=== PATIENT | female | born 1980 | race Caucasian/White ===

== ENCOUNTER 2017-10-03 17:08 | Emergency (ER) | payer MEDICAID, OTHER ==
[2017-10-03] MEDS ORDERED: Ketorolac 60 MG/2 ML SDV IM ONE (17:50)
--- NOTE | 2017-10-03 17:51 | EDM.PDOC ---
ED HPI GENERAL MEDICAL PROBLEM - General Chief Complaint: Headache Stated Complaint: HIGH BP, MIGRAINE Time Seen by Provider: 10/03/17 17:15 Source of Information: Reports: Patient, Family History Limitations: Reports: No Limitations - History of Present Illness INITIAL COMMENTS - FREE TEXT/NARRATIVE: 37 y.o.w.f with a H/O migraine H/A came to the ed with her SO due to neck pain radiating to her posterior sharee to her temp area, bilat after she was carrying furnitures on her back the day prior for moving purposes. No N/V/D, no photophobia or any other acute medical issues. No direct trauma. 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 Posterior head & neck Pain Score (Numeric/FACES): 4 - Related Data Allergies Allergy/AdvReac Type Severity Reaction Status Date / Time No Known Allergies Allergy Verified 10/03/17 17:17 Home Meds: Home Meds buPROPion [buPROPion XL] 300 mg PO DAILY 10/03/17 [History] Past Medical History Gastrointestinal History: Reports: None Genitourinary History: Reports: UTI, Recurrent 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 History: Neurological History: Reports: Migraines Psychiatric History: Reports: Anxiety, Depression Endocrine/Metabolic History: Reports: Diabetes, Gestational - Infectious Disease History Infectious Disease History: Reports: Chicken Pox - Past Surgical History Head Surgeries/Procedures: Reports: None HEENT Surgical History: Reports: Oral Surgery GI Surgical History: Reports: None Female Surgical History: Reports: Section Other Female Surgeries/Procedures: CS x 2 Neurological Surgical History: Reports: None Social & Family History - Family History Family Medical History: Noncontributory - Tobacco Use Smoking Status *Q: Current Some Day Smoker Years of Tobacco use: 19 Packs/Tins Daily: 0.5 - Caffeine Use Caffeine Use: Reports: Coffee - Alcohol Use Days Per Week of Alcohol Use: 1 Number of Drinks Per Day: 1 Total Drinks Per Week: 1 - Recreational Drug Use Recreational Drug Use: No ED ROS GENERAL - Review of Systems Review Of Systems: See Below Constitutional: Reports: No Symptoms HEENT: Reports: No Symptoms Respiratory: Reports: No Symptoms Cardiovascular: Reports: No Symptoms Endocrine: Reports: No Symptoms GI/Abdominal: Reports: No Symptoms : Reports: No Symptoms Musculoskeletal: Reports: No Symptoms Skin: Reports: No Symptoms Neurological: Reports: No Symptoms Psychiatric: Reports: No Symptoms Hematologic/Lymphatic: Reports: No Symptoms Immunologic: Reports: No Symptoms - Physical Exam Exam: See Below Exam Limited By: No Limitations General Appearance: Alert, WD/WN, Mild Distress, Thin Eye Exam: Bilateral Eye: Normal Inspection Ears: Normal External Exam Nose: Normal Inspection, Normal Mucosa, No Blood Throat/Mouth: Normal Inspection, Normal Lips Head Exam: Atraumatic, Normocephalic Neck: Normal Inspection, Supple, Non-Tender Respiratory/Chest: No Respiratory Distress Cardiovascular: Normal Peripheral Pulses GI/Abdominal: Normal Bowel Sounds, Soft, Non-Tender, No Organomegaly, No Abnormal Bruit, No Mass (Female) Exam: Deferred Rectal (Female) Exam: Deferred Neuro Exam (Abbreviated): Alert, Oriented, CN II-XII Intact, Normal Cognition, Normal Gait, No Motor/Sensory Deficits Back Exam: Normal Inspection Extremities: Normal Inspection, Normal Range of Motion, Non-Tender, No Pedal Edema, Normal Capillary Refill Psychiatric: Normal Affect, Normal Mood Skin Exam: Warm, Dry, Intact, Normal Color, No Rash Course - Vital Signs Text/Narrative:: 37 y.o.w.f with a H/O migraine H/A came to the ed with her SO due to neck pain radiating to her posterior sharee to her temp area, bilat after she was carrying furnitures on her back the day prior for moving purposes. No N/V/D, no photophobia or any other acute medical issues. No direct trauma. BP 125/112 Pulse 119 Temp 37.1 RR 18 Pulse ox 99% on RA PE: Bilat post neck discomfort Impression: Tension H/A Tx: Toradol, ICE to post neck Reexam: Improved Plan: D/C with instructions Last Recorded V/S: Last Vital Signs Temp 36.7 C 10/03/17 17:15 Pulse 119 H 10/03/17 17:15 Resp 18 10/03/17 18:25 BP 128/92 H 10/03/17 18:25 Pulse Ox 100 10/03/17 18:25 - Orders/Labs/Meds Meds: Medications Discontinued Medications Generic Name Dose Route Start Last Admin Trade Name Trina PRN Reason Stop Dose Admin Ketorolac Tromethamine 60 mg 10/03/17 17:50 10/03/17 17:55 Toradol IM 10/03/17 17:51 60 mg ONETIME ONE Administration Departure - Departure Time of Disposition: 18:30 Disposition: Home, Self-Care 01 Condition: Good Clinical Impression: Tension-type headache - Discharge Information Instructions: Tension Headache, [id number] Referrals: Felix Barillas MD [Primary Care Provider] - Forms: ED Department Discharge Additional Instructions: Please take motrin 600 mg with food 3 times a day, as needed, please follow up with your regular MD at clinic, come back if your symptoms get worse acutely
== END 2017-10-03 18:37 | disposition home or self-care (01) ==
LOC: FB.ED 17:08
DX: G44.209 Tension-type headache, unspecified, not intractable (principal); F17.210 Nicotine dependence, cigarettes, uncomplicated; Z79.899 Other long term (current) drug therapy
CPT/HCPCS: 96372; 99284; J1885

== ENCOUNTER 2017-11-07 09:44 | Emergency (ER) | payer BC, OTHER ==
[2017-11-07] MEDS ORDERED: diphenhydrAMINE 50 MG/ML SDV IV ONE (10:21)
--- NOTE | 2017-11-07 11:50 | EDM.PDOCBH ---
ED HPI GENERAL MEDICAL PROBLEM - General Chief Complaint: Behavioral/Psych Stated Complaint: SOB Time Seen by Provider: 11/07/17 09:55 Source of Information: Reports: Patient, Family History Limitations: Reports: Other (anxious) - History of Present Illness INITIAL COMMENTS - FREE TEXT/NARRATIVE: 37 y.o.w.f came to the ed by PC due to SOB with face and fingers tingling. Pt had similar symptoms in the past. Pt is anxious and is hyperventilating. She denies being under stress, denies taking drugs, does not smoke, no ETOH. No N/V/ D or any other acute medical issues. She has an appointment with Dr. Barillas tomorrow for anxiety. BP 142/110 RR 24 Pulse ox 100% on RA Pulse 120 Temp 36.8 Onset: Today Onset Date: 11/07/17 Onset Time: 06:00 Duration: Hour(s):, Intermittent Location: Reports: Generalized Severity: Mild Improves with: Reports: Rest Worsens with: Reports: Other (stress) Context: Reports: Other (anxiety, hyperventilation) Associated Symptoms: Reports: Shortness of Breath (while hyperventilaing) - Related Data Allergies Allergy/AdvReac Type Severity Reaction Status Date / Time No Known Allergies Allergy Verified 11/07/17 10:01 Home Meds: Home Meds buPROPion [buPROPion XL] 300 mg PO DAILY 10/03/17 [History] Past Medical History Gastrointestinal History: Reports: None Genitourinary History: Reports: UTI, Recurrent 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 History: Neurological History: Reports: Migraines Psychiatric History: Reports: Anxiety, Depression Endocrine/Metabolic History: Reports: Diabetes, Gestational - Infectious Disease History Infectious Disease History: Reports: Chicken Pox - Past Surgical History Head Surgeries/Procedures: Reports: None HEENT Surgical History: Reports: Oral Surgery GI Surgical History: Reports: None Female Surgical History: Reports: Section Other Female Surgeries/Procedures: CS x 2 Neurological Surgical History: Reports: None Social & Family History - Family History Family Medical History: Noncontributory - Tobacco Use Smoking Status *Q: Never Smoker Years of Tobacco use: 19 Packs/Tins Daily: 0.5 - Caffeine Use Caffeine Use: Reports: Coffee - Alcohol Use Days Per Week of Alcohol Use: 1 Number of Drinks Per Day: 1 Total Drinks Per Week: 1 - Recreational Drug Use Recreational Drug Use: No ED ROS GENERAL - Review of Systems Review Of Systems: See Below Constitutional: Reports: Fatigue HEENT: Reports: No Symptoms Respiratory: Reports: Shortness of Breath, Other (is hyperventilaing) Cardiovascular: Reports: No Symptoms Endocrine: Reports: No Symptoms GI/Abdominal: Reports: No Symptoms : Reports: No Symptoms Musculoskeletal: Reports: No Symptoms Skin: Reports: No Symptoms Neurological: Reports: Tingling (of face and fingers) Psychiatric: Reports: Agitation, Anxiety Hematologic/Lymphatic: Reports: No Symptoms Immunologic: Reports: No Symptoms ED EXAM, BEHAVIORAL HEALTH - Physical Exam Exam: See Below Exam Limited By: No Limitations (hyperventilaing) General Appearance: Alert, WD/WN, Mild Distress Eye Exam: Bilateral Eye: Normal Inspection Ears: Normal External Exam Nose: Normal Inspection Throat/Mouth: Normal Inspection, Normal Lips, Normal Teeth Head: Atraumatic, Normocephalic Neck: Normal Inspection, Supple, Non-Tender, Full Range of Motion Respiratory/Chest: No Respiratory Distress, Lungs Clear, Normal Breath Sounds, No Accessory Muscle Use, Chest Non-Tender Cardiovascular: Normal Peripheral Pulses, Regular Rate, Rhythm, No Edema, No Gallop, No JVD, No Murmur, No Rub GI/Abdominal: Normal Bowel Sounds, Soft, Non-Tender, No Organomegaly, No Distention, No Abnormal Bruit, No Mass (Female) Exam: Deferred Rectal (Female) Exam: Deferred Back Exam: Normal Inspection, Full Range of Motion Extremities: Normal Inspection, Normal Range of Motion, Non-Tender, No Pedal Edema, Normal Capillary Refill Neurological: Alert, Normal Mood/Affect, CN II-XII Intact, Normal Cognition, Normal Gait, No Motor/Sensory Deficits, Oriented x 3 Psychiatric: Alert, Normal Cognition, Agitated Skin Exam: Warm, Dry, Intact, Normal color, No rash COURSE, BEHAVIORAL HEALTH COMP - Course Vital Signs: Last Vital Signs Temp 36.6 C 11/07/17 09:55 Pulse 90 11/07/17 11:40 Resp 20 11/07/17 11:40 BP 140/94 H 11/07/17 11:40 Pulse Ox 100 11/07/17 11:40 37 y.o.w.f came to the ed by PC due to SOB with face and fingers tingling. Pt had similar symptoms in the past. Pt is anxious and is hyperventilating. She denies being under stress, denies taking drugs, does not smoke, no ETOH. No N/V/ D or any other acute medical issues. She has an appointment with Dr. Barillas tomorrow for anxiety. BP 142/110 RR 24 Pulse ox 100% on RA Pulse 120 Temp 36.8 PE: WNWD W F with anxiety and hyperventilation, with face and fingers tingling, "cloudy vision" Visual acuity: 20/20 Labs: CBC/BMP nl UDS neg, HCG neg Impression: Anxiety with hyperventilation, facial numbness Tx: Benadryl Reexam: Improved, BP, RR and pulse improved, facial numbness and finger tingling subsided Plan: D/C with instructions Orders, Labs, Meds: Active Orders 24 hr Category Date Time Status DRUG SCREEN, URINE ALERE [URCHEM] Stat Lab 11/07/17 10:15 Ordered HCG QUALITATIVE,URINE [URCHEM] Stat Lab 11/07/17 10:15 Ordered UA W/MICROSCOPIC [URIN] Stat Lab 11/07/17 10:15 Ordered Laboratory Tests 11/07/17 11/07/17 11/07/17 Range/Units 10:15 10:15 10:15 WBC (4.5-12.0) X10-3/uL RBC (3.23-5.20) x10(6)uL Hgb (11.5-15.5) g/dL Hct (30.0-51.3) % MCV (80-96) fL MCH (27.7-33.6) pg MCHC (32.2-35.4) g/dL RDW (11.5-15.5) % Plt Count (125-369) X10(3)uL MPV (7.4-10.4) fL Neut % (Auto) (46-82) % Lymph % (Auto) (13-37) % Loving % (Auto) (4-12) % Eos % (Auto) (1.0-5.0) % Baso % (Auto) (0-2) % Neut # (Auto) (1.6-8.3) # Lymph # (Auto) (0.6-5.0) # Loving # (Auto) (0.0-1.3) # Eos # (Auto) (0.0-0.8) # Baso # (Auto) (0.0-0.2) # Sodium (135-145) mmol/L Potassium (3.5-5.3) mmol/L Chloride (100-110) mmol/L Carbon Dioxide (21-32) mmol/L BUN (7-18) mg/dL Creatinine (0.55-1.02) mg/dL Est Cr Clr Drug Dosing Estimated GFR (MDRD) (>60) BUN/Creatinine Ratio (9-20) Glucose (80-116) mg/dL Calcium (8.6-10.2) mg/dL Urine Color Yellow (YELLOW) Urine Appearance Clear (CLEAR) Urine pH 7.0 H (5.0-6.5) Ur Specific [place] 1.010 (1.010-1.025) Urine Protein Negative (NEGATIVE) mg/dL Urine Glucose (UA) Normal (NEGATIVE) mg/dL Urine Ketones Negative (NEGATIVE) mg/dL Urine Occult Blood Negative (NEGATIVE) Urine Nitrite Negative (NEGATIVE) Urine Bilirubin Negative (NEGATIVE) Urine Urobilinogen Normal (NEGATIVE) mg/dL Ur Leukocyte Esterase Negative (NEGATIVE) Urine RBC 0-5 (0) Urine WBC 0-5 (0) Ur Squamous Epith Cells Occasional (NS,R,O) Urine Bacteria Rare H (NS) Urine HCG, Qual Negative (NEGATIVE) Urine Opiates Screen Negative (NEGATIVE) Ur Oxycodone Screen Negative (NEGATIVE) Ur Propoxyphene Screen Negative (NEGATIVE) Ur Barbituates Screen Negative (NEGATIVE) Ur Tricyclics Screen Negative (NEGATIVE) Ur Phencyclidine Scrn Negative (NEGATIVE) Ur Amphetamine Screen Negative (NEGATIVE) Urine MDMA Screen Negative (NEGATIVE) U Benzodiazepines Scrn Negative (NEGATIVE) U Cocaine Metab Screen Negative (NEGATIVE) U Marijuana (THC) Screen Negative (NEGATIVE) 11/07/17 11/07/17 Range/Units 10:17 10:17 WBC 7.5 (4.5-12.0) X10-3/uL RBC 4.95 (3.23-5.20) x10(6)uL Hgb 15.8 H (11.5-15.5) g/dL Hct 46.7 (30.0-51.3) % MCV 94.2 (80-96) fL MCH 31.9 (27.7-33.6) pg MCHC 33.9 (32.2-35.4) g/dL RDW 12.2 (11.5-15.5) % Plt Count 325 (125-369) X10(3)uL MPV 8.2 (7.4-10.4) fL Neut % (Auto) 46.0 (46-82) % Lymph % (Auto) 43.6 H (13-37) % Loving % (Auto) 8.4 (4-12) % Eos % (Auto) 1 (1.0-5.0) % Baso % (Auto) 1 (0-2) % Neut # (Auto) 3.4 (1.6-8.3) # Lymph # (Auto) 3.3 (0.6-5.0) # Loving # (Auto) 0.6 (0.0-1.3) # Eos # (Auto) 0.1 (0.0-0.8) # Baso # (Auto) 0.1 (0.0-0.2) # Sodium 138 (135-145) mmol/L Potassium 3.9 (3.5-5.3) mmol/L Chloride 101 (100-110) mmol/L Carbon Dioxide 25 (21-32) mmol/L BUN 9 (7-18) mg/dL Creatinine 1.0 (0.55-1.02) mg/dL Est Cr Clr Drug Dosing TNP Estimated GFR (MDRD) > 60 (>60) BUN/Creatinine Ratio 9.0 (9-20) Glucose 138 H (80-116) mg/dL Calcium 9.4 (8.6-10.2) mg/dL Urine Color (YELLOW) Urine Appearance (CLEAR) Urine pH (5.0-6.5) Ur Specific [place] (1.010-1.025) Urine Protein (NEGATIVE) mg/dL Urine Glucose (UA) (NEGATIVE) mg/dL Urine Ketones (NEGATIVE) mg/dL Urine Occult Blood (NEGATIVE) Urine Nitrite (NEGATIVE) Urine Bilirubin (NEGATIVE) Urine Urobilinogen (NEGATIVE) mg/dL Ur Leukocyte Esterase (NEGATIVE) Urine RBC (0) Urine WBC (0) Ur Squamous Epith Cells (NS,R,O) Urine Bacteria (NS) Urine HCG, Qual (NEGATIVE) Urine Opiates Screen (NEGATIVE) Ur Oxycodone Screen (NEGATIVE) Ur Propoxyphene Screen (NEGATIVE) Ur Barbituates Screen (NEGATIVE) Ur Tricyclics Screen (NEGATIVE) Ur Phencyclidine Scrn (NEGATIVE) Ur Amphetamine Screen (NEGATIVE) Urine MDMA Screen (NEGATIVE) U Benzodiazepines Scrn (NEGATIVE) U Cocaine Metab Screen (NEGATIVE) U Marijuana (THC) Screen (NEGATIVE) Medications Discontinued Medications Generic Name Dose Route Start Last Admin Trade Name Freq PRN Reason Stop Dose Admin Diphenhydramine HCl 25 mg 11/07/17 10:21 11/07/17 10:30 Benadryl IV 11/07/17 10:22 25 mg ONETIME ONE Administration Departure - Departure Time of Disposition: 11:50 Disposition: Home, Self-Care 01 Condition: Good Clinical Impression: Anxiety, Hyperventilation - Discharge Information Instructions: Generalized Anxiety Disorder, Adult, Hyperventilation, Panic Attacks Referrals: eFlix Barillas MD [Primary Care Provider] - Forms: ED Department Discharge Additional Instructions: Please f/u with your PMD as scheduled, please come back to the ED if your symptoms get worse acutely - My Orders Last 24 Hours: My Active Orders 11/07/17 10:15 DRUG SCREEN, URINE ALERE [URCHEM] Stat HCG QUALITATIVE,URINE [URCHEM] Stat UA W/MICROSCOPIC [URIN] Stat - Assessment/Plan Last 24 Hours: My Active Orders 11/07/17 10:15 DRUG SCREEN, URINE ALERE [URCHEM] Stat HCG QUALITATIVE,URINE [URCHEM] Stat UA W/MICROSCOPIC [URIN] Stat
== END 2017-11-07 12:03 | disposition home or self-care (01) ==
LOC: FB.ED 09:44
DX: F41.9 Anxiety disorder, unspecified (principal); R06.4 Hyperventilation; Z79.899 Other long term (current) drug therapy
CPT/HCPCS: 36415; 80048; 80305; 81001; 81025; 85025; 96374; 99283; J1200